=== PATIENT | female | born 1940 | race Caucasian/White ===

== ENCOUNTER 2024-06-14 17:46 | Emergency (ER) | payer MEDICARE, SELFPAY ==
[2024-06-14 17:53] VITALS: BP 178/75
--- NOTE | 2024-06-14 19:54 | ED.GENMED ---
History of Present Illness
General
Chief Complaint: Musculo-Skeletal Complaint
Source: patient
Exam Limitations: none
Time Seen by Provider: 06/14/24 19:35
History of Present Illness
History of Present Illness:
See MDM
Past History
Past History
ED Past Medical History: HTN and Hypercholesterolemia
ED Past Surgical History: Appendectomy, Gynecological and Orthopedic (Left ankle fracture with surgery on 12/31)
Social History
Tobacco: Non-smoker
Alcohol: Occasional
Drug: None
Personal:
Living: with family
Phy Exam
Physical Exam
Physical Exam:
See MDM
Course
Orders/Labs/Results
Orders:
Orders
06/14/24 17:57
CR Hip - RT w/wo Pel 2-3 Vw* Urgent
Comment:
Reason For Exam: injury
Include a pelvis x-ray?: Yes
CR Lumbar Spine Comp Min 4 Vw* Urgent
Comment:
Reason For Exam: injury
06/14/24 19:52
Case Management Consult ONCE
Case Management Consult: VN/Home Care
Comment: Pt had a fall and needs help at home caring for self and
06/14/24 19:53
Lidocaine [Lidocaine 4% Patch] 1 patch TOPICAL ONCE ONE
Apply Lidocaine patch(s) to:: R lower back
Tramadol HCl [Ultram] 25 mg PO ONCE ONE
Vital Signs
Initial and Last Documented VS:
Initial Vital Signs
Temp Pulse Resp BP Pulse Ox
98.2 F 94 20 178/75 98
06/14/24 17:53 06/14/24 17:53 06/14/24 17:53 06/14/24 17:53 06/14/24 17:53
Last Documented Vital Signs
Temp Pulse Resp BP Pulse Ox
98.2 F 94 20 178/75 98
06/14/24 17:53 06/14/24 17:53 06/14/24 17:53 06/14/24 17:53 06/14/24 17:53
MDM/Problems Addressed
Differential Diagnosis Includes:
HPI and MDM Narrative:
84-year-old female presenting with low back pain and right hip pain. Patient fell 3 days ago when she was attempting to stop her from falling. Motrin is not helping with the pain. She was concerned about possible hip fracture although she
was walking without difficulty. My exam, patient got herself out of the wheelchair and so to walk without difficulty. She has no significant right hip tenderness. She has mild right lumbar muscle spasm without significant midline tenderness. No
ecchymosis or obvious noted on exam. X-rays negative for obvious fracture other than possible compression fracture to L2. We discussed symptomatic care and PCP follow-up to discuss MRI options. She does live alone with her . Will obtain
case management order to help discussed home care options fracture help. Daughters at bedside will sleep with them tonight to help
Physical exam
General: Well appearing and non-toxic
HEENT: protecting airway
Neck: appears supple
CV: No evidence of cyanosis
Resp: No accessory muscle use
Abd: Non-distended
Back: Mild spasm and tenderness to right paralumbar musculature. No midline tenderness
Extremities: No deformities
Neuro: alert
Psych: Normal affect
Skin: Intact
Problems Addressed including Acute and Chronic Conditions affecting care:
1. Back and hip pain
Acuity: acute
Prognosis: stable
Details: X-rays negative for obvious fracture. There is questionable L2 compression fracture but she does not have significant tenderness in this area. We discussed pain control options and follow-up with PCP and discussed outpatient MRI. Patient
very comfortable with plan
Differential Diagnosis (but not limited to): Compression fracture, muscle spasm, contusion
Testing considered: CT lumbar
Drug therapy (if applicable): OTC meds, please see d/c instruction regarding Rx drugs
Amount and/or Complexity of Data Reviewed
Clinical info obtained from: Patient
External data reviewed: N/A
Labs I independently reviewed (but not limited to): N/A
Radiology: X-ray independently reviewed: Questionable L2 compression fracture on lumbar x-ray
Pulse Ox: not hypoxic
EKG independently reviewed: N/A
Department Operations Manager: N/A
Critical Care: N/A
Risk of Complication:
Social Determinants of health: Good social support
Discussed with other providers: N/A
Escalation of Care includes Admit/Obs: After being observed in the Emergency Department, pt stable for discharge.
Occasional wrong word or 'sound a like' substitutions may have occurred due to the inherent limitations of voice recognition software. Read the chart carefully and recognize, using context, where substitutions have occurred.
*Critical Care Note
Total Time (30-74mins, 75-104mins- exclusive of procedures): Not Applicable
ED Attending Note
-
Portions of this chart may have been created with voice recognition software.� Occasional wrong word or��sound alike� substitutions may have occurred due to the inherent limitations of voice recognition software.
Discharge Plan
Departure
Patient Disposition: Home (Routine Discharge)
Date of Disposition: 06/14/24
Time of Disposition: 19:54
Patient with high blood pressure during this ER visit?: Yes
Discharge Problem:
Low back pain
Instructions: Vertebral Compression Fracture ED, BLOOD PRESSURE
Prescriptions:
New
diclofenac potassium 50 mg tablet
50 mg PO BID Qty: 20 0RF
tramadol 50 mg tablet
25 mg PO BID PRN (Reason: pain) Qty: 10 0RF
ondansetron 4 mg Tablet,Disintegrating
4 mg PO BIDPRN PRN (Reason: nausea/vomiting) Qty: 10 0RF
lidocaine 4 % adhesive patch,medicated
1 patch topical DAILY PRN (Reason: Pain) Qty: 10 0RF
No Action
levothyroxine 50 mcg Tablet
50 mcg PO DAILY
lisinopril 10 mg Tablet
10 mg PO DAILY
rosuvastatin 5 mg Tablet
5 mg PO DAILY
cholecalciferol (vitamin D3) [Vitamin D3] 50 mcg (2,000 unit) Tablet
50 mcg PO DAILY
Centrum Silver Women 8 mg iron-400 mcg-50 mcg Tablet
1 tab PO DAILY
acetaminophen [acetaminophen] 325 mg tablet
650 mg PO Q4HPRN PRN (Reason: mild pain) Qty: 1 0RF
tramadol 50 mg tablet
50 mg PO Q6HPRN PRN (Reason: severe pain/breakthrough pain) Qty: 5 0RF
ibuprofen 200 mg tablet
200 - 400 mg PO Q6HPRN PRN (Reason: moderate pain) Qty: 1 0RF
polyethylene glycol 3350 [Miralax] 17 gram/dose powder
4 g PO DAILY Qty: 119 0RF
Rx Instructions:
start a stool softner/laxative such as Miralax on Post op day 2 if no BM to avoid/manage post op constipation as per instructions
Referrals:
Tish Montez MD [Family Provider] -
Activity Restrictions/Additional Instructions:
Please return for any worsening symptoms.
You may return at any time if you have further concerns.
Please follow up with your doctor at the first available appointment, preferably this week. If symptoms persist, please discuss the utility of outpatient MRI.
You were given a prescription for narcotics. If you require this pain medicine, please take a daily [id number] stool softener to avoid constipation.
I did place a case management consult in hopes that they reach out to you in the next few days to discuss home care options. If you do not hear from anyone, please have this discussion with your primary care doctor.
Thank you for choosing [facility].
Interventions
Interventions:
*Risk Screen - Suicide Last Done: 06/14/24 17:53
*General Assessment Last Done: 06/14/24 17:53
*Neglect/Abuse Screening Last Done: 06/14/24 17:53
Discharge Date and Time
Print Language: ESTONIAN
[2024-06-14] MEDS: ULTRAM 25 MG PO (19:58)
[2024-06-14] MEDS: LIDOCAINE 4% PATCH 1 PATCH TOPICAL (19:58)
--- NOTE | 2024-06-15 12:05 | CM ---
Chart reviwed. CM consult at around 2019 last night placed for VN services. Patient discharged from ED. CM attempted to call patient's home number and cell phone. Attempted to also call (whose number is also the home number). No one
answered. CM left brief message introducing self and role and reason for calling.
Left contact info with for each phone number.
--- NOTE | 2024-06-16 08:53 | CM ---
Case management attempted to get in touch with Darlyn or her . There was no success. CM left another VM for patient to return phone call.
--- NOTE | 2024-06-16 14:17 | CM ---
Attempted to call one more time. Left a VM stating that this would be last time attempting to reach patient, as CM did not to bother patient. Also stated to call back if they were interested in setting up VN services.
== END 2024-06-14 20:16 | disposition home or self-care (01) ==
LOC: EMR 17:46
PROVIDERS: EMERGENCY PHYSICIAN Student in an Organized Health Care Education/Training Program; FAMILY PHYSICIAN Family Medicine
DX: M54.50 Low back pain, unspecified (principal); S32.028A Other fracture of second lumbar vertebra, initial encounter for closed fracture; W19.XXXA Unspecified fall, initial encounter; I10 Essential (primary) hypertension; E78.00 Pure hypercholesterolemia, unspecified; M25.551 Pain in right hip; Z90.49 Acquired absence of other specified parts of digestive tract
CPT/HCPCS: 99283; 72110; 73502

== ENCOUNTER → 2024-07-26 16:16 | Outpatient (REF) | payer MEDICARE, SELFPAY | LOC: PAVMRI 16:16 | PROVIDERS: ATTENDING PHYSICIAN Family Medicine | DX: S32.020D Wedge compression fracture of second lumbar vertebra, subsequent encounter for fracture with routine healing (principal) | CPT/HCPCS: 72148 ==